=== PATIENT | male | born 1970 | race Caucasian/White ===

== ENCOUNTER 2018-12-10 15:05 | Emergency (ER) | payer MEDICAID ==
[2018-12-10] MEDS: ACETAMINOPHEN 325 MG TAB PO (16:39)
== END 2018-12-10 18:47 | disposition home or self-care (01) ==
LOC: FTE 15:05
DX: M54.2 Cervicalgia (principal); M54.5 Low back pain; R51 Headache
CPT/HCPCS: 70450; 72100; 72125; 73030; 99284-25